=== PATIENT | female | born 1975 | race Caucasian/White ===

== ENCOUNTER → 2019-06-26 | Outpatient (CLI) | payer OTHER ==
--- NOTE | 2019-06-26 11:30 | CT ---
EXAMINATION TYPE: CT brain wo con DATE OF EXAM: 06/26/2019 COMPARISON: 01/23/2013 INDICATION: Headaches with vertigo, right ear trouble DLP: 1121 mGycm, Automated exposure control for dose reduction was used. CONTRAST: None CT of the brain is performed utilizing 3 mm thick sections through the posterior fossa and 3 mm thick sections through the remaining calvarium. Study is performed within 24 hours of arrival to the hosp [facility]. No abnormal hyperdensity is present to suggest an acute intracranial hemorrhage. No mass lesion is evident. No acute infarcts are evident. Ventricles and sulci are appropriate for the patient age. Paranasal sinuses and mastoid air cells within the [id number] are clear. Mastoid air cells are kimber ewhat under pneumatized but are clear. Right middle ear and external auditory canal appears normal. IMPRESSIONS: 1. Normal CT Brain
== END | disposition home or self-care (01) ==
LOC: RADCTMAIN 10:52
PROVIDERS: ATTEND Family Medicine
DX: R51 Headache (principal)
CPT/HCPCS: 70450

== ENCOUNTER → 2020-01-18 | Outpatient (CLI) | payer OTHER ==
[2020-01-18 07:51] LABS: Basophils % (A) 0 %; Eosinophils # (A) 0.1 k/uL (0-0.7); Eosinophils % (A) 1 %; HCT 34.1 % (34.0-46.0); HGB 11.9 gm/dL (11.4-16.0); Lymphocytes # (A) 1.8 k/uL (1.0-4.8); Lymphocytes % (A) 19 %; MCH 33.9 pg (25.0-35.0); MCHC 34.8 g/dL (31.0-37.0); MCV 97.4 fL (80.0-100.0); Mean Platelet Volume 8.2; Monocytes # (A) 0.4 k/uL (0-1.0); Monocytes % (A) 5 %; Neutrophils # (A) 7.1 k/uL (1.3-7.7); Neutrophils % (A) 74 %; Platelet Count 187 k/uL (150-450); RDW 13.3 % (11.5-15.5); WBC 9.6 k/uL (3.8-10.6)
[2020-01-18 13:42] LABS: African American GFR (CKD) 123.9 (60.0-200.0); Albumin/Globulin Ratio 1.9 (1.60-3.17); Anion Gap 6.8 mmol/L (4.00-12.00); Calcium 9.6 mg/dL (8.7-10.3); Carbon Dioxide 23.2 mmol/L (21.6-31.8); Chol/HDL Ratio 4.18; Globulin 2.1 g/dL (1.6-3.3); LDL Cholesterol,Calculated 71.4 mg/dL (0.0-131.0); Non-African American GFR(CKD) 106.9 (60.0-200.0); Total Bilirubin 0.9 mg/dL (0.3-1.2); Total Protein 6.1 g/dL (6.2-8.2); VLDL Calculation 36.6 mg/dL (5.00-40.00)
[2020-01-18 15:22] LABS: Hemoglobin A1C 4.3 % (4.0-6.0)
== END ==
LOC: LABWHC1 07:15
PROVIDERS: ATTEND Family Medicine
DX: I10 Essential (primary) hypertension (principal); J45.40 Moderate persistent asthma, uncomplicated; E78.1 Pure hyperglyceridemia; G43.909 Migraine, unspecified, not intractable, without status migrainosus
CPT/HCPCS: 36415; 80053; 80061; 83036; 85025

== ENCOUNTER → 2020-08-31 | Outpatient (CLI) | payer OTHER ==
[2020-08-31 22:07] LABS: Basophils # (A) 0.08 X 10*3/uL (0.00-0.10); Basophils % (A) 0.6 %; Eosinophils # (A) 0.16 X 10*3/uL (0.04-0.35); Eosinophils % (A) 1.3 %; HCT 35.1 % (37.2-46.3); HGB 11.5 g/dL (12.0-15.0); Lymphocytes # (A) 2.81 X 10*3/uL (0.90-5.00); Lymphocytes % (A) 22.4 %; MCH 33.4 pg (27.0-32.0); MCHC 32.8 g/dL (32.0-37.0); Mean Platelet Volume 11.5 fL (9.5-12.2); Monocytes % (A) 7.2 %; Neutrophils % (A) 67.9 %; Platelet Count 200 X 10*3/uL (140-440); RBC 3.44 X 10*6/uL (4.10-5.20); RDW 13.4 % (11.5-14.5); WBC 12.52 X 10*3/uL (4.50-10.00)
[2020-09-01 11:44] LABS: Gliadin AB IgA, Deaminated NEGATIVE (NEGATIVE); Gliadin AB IgA, Unit <0.2 U/mL; Gliadin AB IgG, Deaminated NEGATIVE (NEGATIVE)
== END | disposition home or self-care (01) ==
LOC: LABWHC1 10:39
PROVIDERS: ATTEND Internal Medicine Gastroenterology
DX: R19.4 Change in bowel habit (principal)
CPT/HCPCS: 36415; 83516; 85025

== ENCOUNTER 2020-10-11 09:29 | Day surgery (SDC) | payer OTHER ==
[2020-10-06 12:07] VITALS: BMI 46.2
[~2020-10-11 09:29] MED LIST: LACTATED RINGERS 1,000 ML IV SCH; LIDOCAINE 1% (10MG/ML) FOR IV START INTRADERMA PRN
[2020-10-11] MEDS ORDERED: PROPOFOL 10 MG/ML 20 ML VIAL IV ONE (10:26)
[2020-10-11 10:28] VITALS: TEMP 97.6
--- NOTE | 2020-10-11 10:45 | P.PCN ---
Date of Procedure: 10/11/20 Procedure(s) Performed: BRIEF HISTORY: Patient is a 44-year-old pleasant white female scheduled for an elective colonoscopy as a part of evaluation of intermittent rectal bleeding and change in bowel habits. PROCEDURE PERFORMED: Colonoscopy with biopsy. PREOPERATIVE DIAGNOSIS: Rectal bleeding and change in bowel habits. IV sedation per Anesthesia. PROCEDURE: After informed consent was obtained, the patient, was brought into the endoscopy unit. IV sedation was administered by Anesthesia under continuous monitoring. Digital rectal examination was normal. Initially the Olympus CF-160 flexible video colonoscope was then inserted in the rectum, gradually advanced into the cecum without any difficulty. Careful examination was performed as the scope was gradually being withdrawn. Ileocecal valve and the appendiceal orifice were visualized and appeared normal. Prep was excellent. In the base of the cecum there was a 3 mm polyp that was removed by cold biopsy. Mucosa of the cecum, ascending colon, transverse colon, descending colon, sigmoid colon, and rectum appeared normal. Retroflexion was performed in the rectum and a 2 internal hemorrhoids were seen. The patient tolerated the procedure well. IMPRESSION: Grade 2 internal hemorrhoids 3 mm cecal polyp status post removal by cold biopsy RECOMMENDATIONS: Findings of this examination were discussed with the patient is well as her family. Follow with biopsy results..She was advised to be a high-fiber diet and take fiber supplements a regular basis. She can have a repeat colonoscopy in 10 years.
[2020-10-11 11:08] VITALS: RESP 20
[2020-10-11 11:23] VITALS: BP 103/64; PULSE 64
== END 2020-10-11 11:31 | disposition home or self-care (01) ==
LOC: ORWHC2ENDO 09:29
PROVIDERS: ATTEND Internal Medicine Gastroenterology
DX: K63.89 Other specified diseases of intestine (principal); Z79.84 Long term (current) use of oral hypoglycemic drugs; Z79.899 Other long term (current) drug therapy; I10 Essential (primary) hypertension; J45.909 Unspecified asthma, uncomplicated; F17.200 Nicotine dependence, unspecified, uncomplicated; G43.909 Migraine, unspecified, not intractable, without status migrainosus; E66.01 Morbid (severe) obesity due to excess calories; Z68.42 Body mass index [BMI] 45.0-49.9, adult; Z79.3 Long term (current) use of hormonal contraceptives; Z90.49 Acquired absence of other specified parts of digestive tract; Z90.89 Acquired absence of other organs; Z98.890 Other specified postprocedural states; J30.89 Other allergic rhinitis
CPT/HCPCS: 81025; 88305; 88313; 45380; J2704

== ENCOUNTER → 2021-08-24 | Outpatient (CLI) | payer OTHER ==
--- NOTE | 2021-08-24 10:34 | FL ---
ESOPHOGRAM. HISTORY: Dysphagia Esophagram was performed per the air contrast technique. The patient swallowed barium and effervesce nt crystals without difficulty or delay. Esophageal peristalsis and motility appear to be within normal limits. There is no evidence for filling defect, mass or diverticulum. There is a small reducible sliding type hiatal hernia. Mild gastroesophageal reflux noted without eso phagitis. Subsequently single contrast cervical esophagram was performed which fails demonstrate evidence for a spiration penetration or mass. IMPRESSION: There is a small reducible sliding type hiatal hernia. Mild gastroesophageal reflux noted without esophagitis.
== END | disposition home or self-care (01) ==
LOC: RADUSWWP 09:46
PROVIDERS: ATTEND Surgery Plastic and Reconstructive Surgery
DX: K44.9 Diaphragmatic hernia without obstruction or gangrene (principal); K21.9 Gastro-esophageal reflux disease without esophagitis
CPT/HCPCS: 74220

== ENCOUNTER 2021-09-12 09:13 | Day surgery (SDC) | payer OTHER ==
[2021-09-10 11:44] VITALS: BMI 43.7
--- NOTE | 2021-09-12 09:06 | P.GSHP ---
History of Present Illness H&P Date: 09/12/21 CHIEF COMPLAINT: GERD HISTORY OF PRESENT ILLNESS: The patient is a 45-year-old female who presents reports gastroesophageal reflux disease. Upper endoscopy was offered for further evaluation and management. PAST MEDICAL HISTORY: Please see list. PAST SURGICAL HISTORY: Please see list. MEDICATIONS: Please see list. ALLERGIES: Please see list. SOCIAL HISTORY: No illicit drug use FAMILY HISTORY: No reports of Crohn disease or ulcerative colitis. REVIEW OF ORGAN SYSTEMS: CONSTITUTIONAL: No reports of fevers or chills. GI: Denies any blood in stools or constipation. PHYSICAL EXAM: VITAL SIGNS: Stable GENERAL: Well-developed and pleasant in no acute distress. HEENT: No scleral icterus. Extraocular movements grossly intact. Moist buccal mucosa. NECK: Supple without lymphadenopathy. CHEST: Unlabored respirations. Equal bilateral excursions. CARDIOVASCULAR: Regular rate and rhythm. Distal 2+ pulses. ABDOMEN: Soft, nondistended. MUSCULOSKELETAL: No clubbing, cyanosis, or edema. ASSESSMENT: 1. Gastroesophageal reflux disease PLAN: 1. Recommend proceeding with an upper endoscopy Past Medical History Past Medical History: Asthma, GERD/Reflux, Hypertension, Osteoarthritis (OA), Pneumonia Additional Past Medical History / Comment(s): migraines, irregular bowel movements, History of Any Multi-Drug Resistant Organisms: None Reported Past Surgical History: Appendectomy, Cholecystectomy, Heart Catheterization, Tonsillectomy Additional Past Surgical History / Comment(s): surgery for deviated septum, anal fissure repair, D&C, Past Anesthesia/Blood Transfusion Reactions: No Reported Reaction Smoking Status: Current every day smoker - Past Family History Father Family Medical History: Cancer Mother Family Medical History: Deep Vein Thrombosis (DVT) Medications and Allergies Home Medications Medication Instructions Recorded Confirmed Type Cetirizine HCl [Zyrtec] 10 mg PO DAILY 03/07/14 09/10/21 History Docusate Sodium [Stool Softener] 100 mg PO DIRECTED PRN 03/07/14 09/10/21 History Medroxyprogesterone Acetate 150 mg IM Q90D 03/07/14 09/10/21 History [Depo-Provera] Montelukast [Singulair] 10 mg PO HS 03/07/14 09/10/21 History Potassium Chloride [K-Tab] 20 meq PO TID 03/07/14 09/10/21 History Topiramate [Topamax] 100 mg PO BID 03/07/14 09/10/21 History hydroCHLOROthiazide [Hydrodiuril] 25 mg PO DAILY 03/07/14 09/10/21 History Albuterol Sulfate [Proair Hfa] 1 - 2 puff INHALATION DIRECTED 10/06/20 09/10/21 History PRN Citalopram Hydrobromide [CeleXA] 40 mg PO HS 10/06/20 09/10/21 History L.acidoph,Paracasei, B.lactis 1 each PO DAILY 10/06/20 09/10/21 History [Probiotic] Magnesium 250 mg PO DAILY 10/06/20 09/10/21 History Multivitamins, Thera [Multivitamin 1 tab PO DAILY 10/06/20 09/10/21 History (formulary)] Naproxen Sodium [Aleve] 220 mg PO DAILY 10/06/20 09/10/21 History Zinc 50 mg PO DAILY 10/06/20 09/10/21 History busPIRone HCL 15 mg PO BID 10/06/20 09/10/21 History hydrOXYzine HCL [Atarax] 25 mg PO TID PRN 10/06/20 09/10/21 History lisinopriL 10 mg PO HS 10/06/20 09/10/21 History Pantoprazole [Protonix] 40 mg PO BID 09/10/21 09/10/21 History Allergies Allergy/AdvReac Type Severity Reaction Status Date / Time No Known Allergies Allergy Verified 09/10/21 11:25
[2021-09-12 09:45] VITALS: TEMP 97.1
[2021-09-12] MEDS ORDERED: LIDOCAINE 1% INJ 10MG/ML (20 ML MDV) ONE (10:45)
[2021-09-12] MEDS ORDERED: PROPOFOL 10 MG/ML 20 ML VIAL IV ONE (10:45)
[2021-09-12 11:04] VITALS: RESP 18
[2021-09-12] MEDS ORDERED: ACETAMINOPHEN TAB 325 MG TAB ONE (11:09)
[2021-09-12] MEDS ORDERED: ACETAMINOPHEN TAB 325 MG TAB PO ONE (11:10)
[2021-09-12 11:20] VITALS: BP 107/77; PULSE 76
--- NOTE | 2021-09-12 11:36 | P.PCN ---
Date of Procedure: 09/12/21 Description of Procedure: PREOPERATIVE DIAGNOSIS: Gastroesophageal reflux disease. Morbid obesity. POSTOPERATIVE DIAGNOSIS: Gastroesophageal reflux disease. Morbid obesity. Gastritis. Duodenitis Diaphragmatic hiatal hernia OPERATION: Esophagogastroduodenoscopy with biopsies along antrum. SURGEON: Gaby Addison MD ANESTHESIA: MAC. INDICATIONS: The patient is a 45-year-old female who presents with reflux disease. Benefits and risks of the procedure were described. Informed consent was obtained. DESCRIPTION: The patient was brought into the endoscopy suite and laid in the left lateral decubitus position. An Olympus gastroscope was passed along the posterior oropharynx down to the distal esophagus where the squamocolumnar junction was encountered at 39 cm from the incisors. The stomach was entered and no bile reflux was found. Additional findings are listed below. Biopsies with cold for ceps were obtained of the antrum. The first through third portion of the duodenum was examined for duodenitis. Retroflexion of the scope confirmed Hill grade 3 lower esophageal valve. The squamocolumnar junction demonstrated LA grade B erosive esophagitis. The stomach was desufflated. The patient tolerated the procedure well. FINDINGS: Squamocolumnar junction 39 cm from the incisors. Diaphragmatic hiatus at 40 cm. Hiatal hernia, 1 cm Hill grade 2 lower esophageal valve. LA grade B erosive esophagitis. Active duodenitis. Chronic gastritis with recent bleed RECOMMENDATIONS: 1. Tobacco cessation and counseling over 3 minutes described for chronic gastritis 2. Omeprazole 40 mg twice a day for 2 weeks 3. Discontinue NSAIDs temporarily during treatment Plan - Discharge Summary Discharge Rx Participant: No New Discharge Prescriptions: New Omeprazole [PriLOSEC] 40 mg PO DAILY #14 cap Continue hydroCHLOROthiazide [Hydrodiuril] 25 mg PO DAILY Montelukast [Singulair] 10 mg PO HS Topiramate [Topamax] 100 mg PO BID Cetirizine HCl [Zyrtec] 10 mg PO DAILY Medroxyprogesterone Acetate [Depo-Provera] 150 mg IM Q90D Potassium Chloride [K-Tab ER] 20 meq PO TID Docusate Sodium [Stool Softener] 100 mg PO DIRECTED PRN PRN Reason: CONSTIPATION busPIRone HCL 15 mg PO BID Multivitamins, Thera [Multivitamin (formulary)] 1 tab PO DAILY Albuterol Sulfate [Proair Hfa] 1 - 2 puff INHALATION DIRECTED PRN PRN Reason: sob hydrOXYzine HCL [Atarax] 25 mg PO TID PRN PRN Reason: Anxiety lisinopriL 10 mg PO HS Citalopram Hydrobromide [CeleXA] 40 mg PO HS Zinc 50 mg PO DAILY L.acidoph,Paracasei, B.lactis [Probiotic] 1 each PO DAILY Magnesium 250 mg PO DAILY Pantoprazole [Protonix] 40 mg PO BID Discontinued Naproxen Sodium [Aleve] 220 mg PO DAILY Discharge Medication List Cetirizine HCl [Zyrtec] 10 mg PO DAILY 03/07/14 [History] Docusate Sodium [Stool Softener] 100 mg PO DIRECTED PRN 03/07/14 [History] Medroxyprogesterone Acetate [Depo-Provera] 150 mg IM Q90D 03/07/14 [History] Montelukast [Singulair] 10 mg PO HS 03/07/14 [History] Potassium Chloride [K-Tab ER] 20 meq PO TID 03/07/14 [History] Topiramate [Topamax] 100 mg PO BID 03/07/14 [History] hydroCHLOROthiazide [Hydrodiuril] 25 mg PO DAILY 03/07/14 [History] Albuterol Sulfate [Proair Hfa] 1 - 2 puff INHALATION DIRECTED PRN 10/06/20 [History] Citalopram Hydrobromide [CeleXA] 40 mg PO HS 10/06/20 [History] L.acidoph,Paracasei, B.lactis [Probiotic] 1 each PO DAILY 10/06/20 [History] Magnesium 250 mg PO DAILY 10/06/20 [History] Multivitamins, Thera [Multivitamin (formulary)] 1 tab PO DAILY 10/06/20 [History] Zinc 50 mg PO DAILY 10/06/20 [History] busPIRone HCL 15 mg PO BID 10/06/20 [History] hydrOXYzine HCL [Atarax] 25 mg PO TID PRN 10/06/20 [History] lisinopriL 10 mg PO HS 10/06/20 [History] Pantoprazole [Protonix] 40 mg PO BID 09/10/21 [History] Omeprazole [PriLOSEC] 40 mg PO DAILY #14 cap 09/12/21 [Rx] Follow up Appointment(s)/Referral(s): Gaby Addison MD [STAFF PHYSICIAN] - 10/16/21 Patient Instructions/Handouts: How to Stop Smoking (DC), Gastritis (DC), Diet for Stomach Ulcers and Gastritis (ED) Discharge Disposition: HOME SELF-CARE
== END 2021-09-12 11:44 | disposition home or self-care (01) ==
LOC: ORWHC2ENDO 09:13
PROVIDERS: ATTEND Surgery Plastic and Reconstructive Surgery
DX: K21.00 Gastro-esophageal reflux disease with esophagitis, without bleeding (principal); K29.50 Unspecified chronic gastritis without bleeding; K29.80 Duodenitis without bleeding; K44.9 Diaphragmatic hernia without obstruction or gangrene; E66.01 Morbid (severe) obesity due to excess calories; I10 Essential (primary) hypertension; J45.909 Unspecified asthma, uncomplicated; M19.90 Unspecified osteoarthritis, unspecified site; G43.909 Migraine, unspecified, not intractable, without status migrainosus; F17.210 Nicotine dependence, cigarettes, uncomplicated; F32.A Depression, unspecified; F41.9 Anxiety disorder, unspecified; Z68.41 Body mass index [BMI] 40.0-44.9, adult; Z79.899 Other long term (current) drug therapy; Z79.3 Long term (current) use of hormonal contraceptives; Z90.49 Acquired absence of other specified parts of digestive tract; Z90.89 Acquired absence of other organs; Z98.890 Other specified postprocedural states; Z87.01 Personal history of pneumonia (recurrent); Z80.9 Family history of malignant neoplasm, unspecified
CPT/HCPCS: 81025; 88305; 43239; J2001; J2704

== ENCOUNTER → 2022-02-20 | Outpatient (CLI) | payer SELFPAY ==
[2022-02-21 00:40] LABS: African American GFR (CKD) 101.8 (60.0-200.0); Anion Gap 13.5 mmol/L (10.00-18.00); BUN/Creat Ratio 14.99 Ratio (12.00-20.00); Blood Urea Nitrogen 12.2 mg/dL (9.0-27.0); Calcium 9.3 mg/dL (8.7-10.3); Carbon Dioxide 22.5 mmol/L (20.0-27.5); Non-African American GFR(CKD) 87.8 (60.0-200.0); Potassium 3.8 mmol/L (3.5-5.5)
== END | disposition home or self-care (01) ==
LOC: LABWHC1 10:56
PROVIDERS: ATTEND Family Medicine
DX: I10 Essential (primary) hypertension (principal)
CPT/HCPCS: 36415; 80048

== ENCOUNTER → 2023-03-05 | Outpatient (CLI) | payer OTHER ==
--- NOTE | 2023-03-11 13:29 | MM ---
Reason for Exam: Screening (asymptomatic). Last mammogram was performed 2 year(s) and 6 month(s) ago. Patient History: Menarche at age 14. Patient has no children. Currently using Hormonal Contraceptives, starting at age 30. Sister had ovarian cancer, age 50. Risk Values: Laura 5 year model risk: 0.9%. NCI Lifetime model risk: 10.6%. Prior Study Comparison: 09/20/2020 Bilateral Screening Mammogram, [facility]. Tissue Density: The breast tissue is almost entirely fat. Findings: Analyzed By CAD. Pattern appears stable. No significant interval change is evident. No suspicious groups of microcalcifications, spiculated or lobular masses, architectural distortion or other secondary signs of malignancy are mammographically apparent. Overall Assessment: Negative, BI-RAD 1 Management: Screening Mammogram of both breasts in 1 year. A negative mammogram report should not preclude additional follow up of suspicious palpable abnormalities. Patient should continue monthly self breast exam. A clinical breast exam by your physician is recommended on an annual basis and results should be correlated with mammographic findings. Electronically signed and approved by: Henrik Abrams D.O. Radiologis
== END | disposition home or self-care (01) ==
LOC: RADMAMWWP 15:58
PROVIDERS: ATTEND Family Medicine
DX: Z12.31 Encounter for screening mammogram for malignant neoplasm of breast (principal)
CPT/HCPCS: 77067

== ENCOUNTER → 2023-05-27 | Outpatient (CLI) | payer OTHER | LOC: CPPFTMAIN 16:31 | PROVIDERS: ATTEND Family Medicine | DX: J45.909 Unspecified asthma, uncomplicated (principal); F17.200 Nicotine dependence, unspecified, uncomplicated | CPT/HCPCS: 94060; 94726; 94729 ==

== ENCOUNTER → 2023-06-04 | Outpatient (CLI) | payer OTHER | END | disposition home or self-care (01) | LOC: LABWHC1 16:10 | PROVIDERS: ATTEND Family Medicine | DX: R05.1 Acute cough (principal) | CPT/HCPCS: 87634 ==

== ENCOUNTER → 2023-06-04 | Outpatient (CLI) | payer OTHER ==
--- NOTE | 2023-06-05 08:24 | XR ---
EXAMINATION TYPE: XR chest 2V DATE OF EXAM: 06/04/2023 COMPARISON: NONE TECHNIQUE: PA and lateral views submitted. HISTORY: Cough FINDINGS: The lungs are clear and there is no pneumothorax, pleural effusion, or focal pneumonia. Heart size normal and no overt failure. Osseous structures demonstrate hypertrophic and degenerative changes of the spine. Hyperexpansion correlate for COPD. Biapical pleural thickening. IMPRESSION: 1. No acute process.
== END | disposition home or self-care (01) ==
LOC: RADXRMAIN 17:04
PROVIDERS: ATTEND Physician Assistant
DX: R05.1 Acute cough (principal)
CPT/HCPCS: 71046

== ENCOUNTER → 2024-03-25 | Outpatient (CLI) | payer OTHER ==
--- NOTE | 2024-03-26 09:39 | MM ---
Reason for Exam: Screening (asymptomatic). Last mammogram was performed 1 year(s) and 1 month(s) ago. Patient History: Menarche at age 14. Patient has no children. Currently using Hormonal Contraceptives, starting at age 30. Sister had ovarian cancer, age 50. Risk Values: Laura 5 year model risk: 0.9%. NCI Lifetime model risk: 10.5%. Prior Study Comparison: 09/20/2020 Bilateral Screening Mammogram, [facility]. 03/05/2023 Bilateral MG screening mammo w CAD, [facility]. Tissue Density: The breasts are almost entirely fatty. Findings: Analyzed By CAD. Right breast: There is no suspicious group of microcalcifications or new suspicious mass. Left breast: There is no suspicious group of microcalcifications or new suspicious mass. Overall Assessment: Negative, BI-RAD 1 Management: Screening Mammogram of both breasts in [address] [facility] will attempt to contact patient to return for supplemental views and ultrasound if indicated. Patient should continue monthly self-breast exams. A clinical breast exam by your physician is recommended on an annual basis. This exam should not preclude additional follow-up of suspicious palpable abnormalities. Note on Laura scores and lifetime risk: 1. A Laura score greater than 3% is considered moderate risk. If this is the case, consider specialist referral to assess eligibility for a risk reducing agent. 2. If overall lifetime risk for the development of breast cancer is 20% or higher, the patient may qualify for future screening with alternating mammogram and breast MRI. [facility], , 03/26/2024 9:36 AM. Electronically signed and approved by: Gautam Cordova DO
== END | disposition home or self-care (01) ==
LOC: RADMAMWWP 14:36
PROVIDERS: ATTEND Family Medicine
DX: Z12.31 Encounter for screening mammogram for malignant neoplasm of breast
CPT/HCPCS: 77067

== ENCOUNTER 2024-04-05 22:16 | Emergency (ER) | payer OTHER ==
[2024-04-05 22:19] VITALS: RESP 18; TEMP 98.2
--- NOTE | 2024-04-05 23:28 | XR ---
EXAM: XR Left Knee, 3 Views CLINICAL HISTORY: pain TECHNIQUE: Three views of the left knee. COMPARISON: No relevant prior studies available. FINDINGS: Bones/joints: Moderate osteoarthritic changes worse in lateral compartment characterized by joint space narrowing and osteophyte formation. 12 mm loose body in the anterior aspect of the tibial plateau. No fracture or dislocation. Soft tissues: Myositis ossificans versus heterotopic bone formations in the soft tissues of medial aspect of proximal leg. IMPRESSION: Moderate osteoarthritic changes worse in lateral compartment
--- NOTE | 2024-04-05 23:51 | ED ---
Lower Extremity Injury HPI - General Chief Complaint: Extremity Injury, Lower Stated Complaint: L Knee Pain Time Seen by Provider: 04/05/24 22:31 Source: patient, RN notes reviewed Mode of arrival: ambulatory Limitations: no limitations - History of Present Illness Initial Comments: 48-year-old female presents emergency department for chief complaint of left knee pain. States that while she was walking up the stairs this evening she felt like her knee gave out and felt a popping sensation in the knee. She denies falling or hitting her left knee during this time. Denies left hip or ankle pain. Denies paresthesias. Patient is able to ambulate with pain. She does have a history of osteoarthritis of the left knee where she receives joint injections and is [facility]. Denies previous surgeries of the left knee. - Related Data Home Medications Medication Instructions Recorded Confirmed Cetirizine HCl [Zyrtec] 10 mg PO DAILY 03/07/14 09/10/21 Docusate Sodium [Stool Softener] 100 mg PO DIRECTED PRN 03/07/14 09/10/21 Medroxyprogesterone Acetate 150 mg IM Q90D 03/07/14 09/10/21 [Depo-Provera] Montelukast [Singulair] 10 mg PO HS 03/07/14 09/10/21 Potassium Chloride [K-Tab ER] 20 meq PO TID 03/07/14 09/10/21 Topiramate [Topamax] 100 mg PO BID 03/07/14 09/10/21 hydroCHLOROthiazide [Hydrodiuril] 25 mg PO DAILY 03/07/14 09/10/21 Albuterol Sulfate [Proair Hfa] 1 - 2 puff INHALATION DIRECTED 10/06/20 09/10/21 PRN Citalopram Hydrobromide [CeleXA] 40 mg PO HS 10/06/20 09/10/21 L.acidoph,Paracasei, B.lactis 1 each PO DAILY 10/06/20 09/10/21 [Probiotic] Magnesium 250 mg PO DAILY 10/06/20 09/10/21 Multivitamins, Thera [Multivitamin 1 tab PO DAILY 10/06/20 09/10/21 (formulary)] Zinc 50 mg PO DAILY 10/06/20 09/10/21 busPIRone HCL 15 mg PO BID 10/06/20 09/10/21 hydrOXYzine HCL [Atarax] 25 mg PO TID PRN 10/06/20 09/10/21 lisinopriL [Prinivil] 10 mg PO HS 10/06/20 09/10/21 Pantoprazole [Protonix] 40 mg PO BID 09/10/21 09/10/21 Previous Rx's Medication Instructions Recorded Omeprazole [PriLOSEC] 40 mg PO DAILY #14 cap 09/12/21 Ketorolac [Toradol] 10 mg PO Q8HR PRN #15 tab 04/05/24 Allergies Allergy/AdvReac Type Severity Reaction Status Date / Time No Known Allergies Allergy Verified 04/05/24 22:19 Review of Systems ROS Statement: Those systems with pertinent positive or pertinent negative responses have been documented in the HPI. ROS Other: All systems not noted in ROS Statement are negative. Past Medical History Past Medical History: Asthma, GERD/Reflux, Hypertension, Pneumonia Additional Past Medical History / Comment(s): migraines, irregular bowel movements, History of Any Multi-Drug Resistant Organisms: None Reported Past Surgical History: Appendectomy, Cholecystectomy, Heart Catheterization, Tonsillectomy Additional Past Surgical History / Comment(s): surgery for deviated septum, anal fissure repair, D&C, Past Anesthesia/Blood Transfusion Reactions: No Reported Reaction Past Psychological History: Anxiety, Depression Smoking Status: Current every day smoker Past Alcohol Use History: None Reported Past Drug Use History: None Reported - Past Family History Father Family Medical History: Cancer Mother Family Medical History: Deep Vein Thrombosis (DVT) General Exam Limitations: no limitations General appearance: alert, in no apparent distress ENT exam: Present: normal exam, mucous membranes moist Neck exam: Present: normal inspection. Absent: tenderness, meningismus, lymphad enopathy Respiratory exam: Present: normal lung sounds bilaterally. Absent: respiratory distress, wheezes, rales, rhonchi, stridor Cardiovascular Exam: Present: regular rate, normal rhythm, normal heart sounds. Absent: systolic murmur, diastolic murmur, rubs, gallop, clicks GI/Abdominal exam: Present: soft, normal bowel sounds. Absent: distended, tenderness, guarding, rebound, rigid Left Knee exam: Present: normal inspection, tenderness (lateral to palpation and with ROM). Absent: swelling, abrasion, ecchymosis, deformity Lower Leg exam: Present: normal inspection, full ROM. Absent: tenderness Neurovascular tendon exam: Absent: no vascular compromise, pulse deficit, abnormal cap refill, motor deficit Gait: observed and limited by pain Back exam: Present: normal inspection Skin exam: Present: warm, dry, intact, normal color. Absent: rash Course Vital Signs 04/05/24 04/06/24 22:17 00:07 Temperature 98.2 F Pulse Rate 82 81 Respiratory 18 18 Rate Blood Pressure 134/81 122/85 O2 Sat by Pulse 98 97 Oximetry Medical Decision Making - Medical Decision Making Was pt. sent in by a medical professional or institution (, PA, LOW PRESSURE BOILER TENDER, urgent care, hospital, or detention...) When possible be specific @ -No Did you speak to anyone other than the patient for history (EMS, parent, family, police, friend...)? What history was obtained from this source @ -No Did you review nursing and triage notes (agree or disagree)? Why? @ -I reviewed and agree with nursing and triage notes Were old charts reviewed (outside hosp., previous admission, EMS record, old EKG, old radiological studies, urgent care reports/EKG's, detention records)? Report findings @ -No old charts were reviewed Differential Diagnosis (chest pain, altered mental status, abdominal pain women, abdominal pain men, vaginal bleeding, weakness, fever, dyspnea, syncope, headache, dizziness, GI bleed, back pain, seizure, CVA, palpatations, mental health, musculoskeletal)? @ -Differential Musculoskeletal Muscular strain, contusion, ligament sprain, fracture, arthritis, septic arthritis, bursitis, cellulitis, muscle spasm, nerve compression, DVT, arterial occlusion, herpes zoster, electrolyte abnormality, tumor.... This is not meant to be in all inclusive list EKG interpreted by me (3pts min.). @ -None X-rays interpreted by me (1pt min.). @ -X-ray of the left knee reveals moderate osteoarthritic changes worse in the lateral compartment. CT interpreted by me (1pt min.). @ -None done U/S interpreted by me (1pt. min.). @ -None done What testing was considered but not performed or refused? (CT, X-rays, U/S, labs)? Why? @ -None What meds were considered but not given or refused? Why? @ -None Did you discuss the management of the patient with other professionals (professionals i.e. , PA, LOW PRESSURE BOILER TENDER, lab, RT, psych nurse, social services specialist, golf club repairer, teacher, chief legal officer, manager case management)? Give summary @ -No Was smoking cessation discussed for >3mins.? @ -No Was critical care preformed (if so, how long)? @ -No Were there social determinants of health that impacted care today? How? (Homelessness, low income, unemployed, alcoholism, drug addiction, transportation, low edu. Level, literacy, decrease access to med. care, residential, rehab)? @ -No Was there de-escalation of care discussed even if they declined (Discuss DNR or withdrawal of care, Hospice)? DNR status @ -No What co-morbidities impacted this encounter? (DM, HTN, Smoking, COPD, CAD, Cancer, CVA, ARF, Chemo, Hep., AIDS, mental health diagnosis, sleep apnea, morbid obesity)? @ -None Was patient admitted / discharged? Hospital course, mention meds given and route, prescriptions, significant lab abnormalities, going to OR and other pertinent info. @ -Discharge. 48-year-old female with left knee pain. On my evaluation the patient she is resting comfortably no signs acute distress. Patient's pain in the left knee exacerbated with range of motion and with palpation. She is able to ambulate however with pain. X-ray negative for acute abnormality. She is provided with dose of Toradol emergency department and sent a prescription for Toradol to take as needed. Patient has seen a personnel security specialist in the past recommend that she contact her specialist in the morning to schedule appointment for further evaluation for potential MRI. All questions answered at bedside and strict return parameters ruben with the patient she is verbalized understanding. Discussed with Dr. Alfaro Undiagnosed new problem with uncertain prognosis? @ -No Drug Therapy requiring intensive monitoring for toxicity (Heparin, Nitro, Insulin, Cardizem)? @ -No Were any procedures done? @ -No Diagnosis/symptom? @ -Knee sprain, knee pain Acute, or Chronic, or Acute on Chronic? @ -acute Uncomplicated (without systemic symptoms) or Complicated (systemic symptoms)? @ -Uncomplicated Side effects of treatment? @ -No Exacerbation, Progression, or Severe Exacerbation? @ -No Poses a threat to life or bodily function? How? (Chest pain, [place], [place], pneumonia, PE, COPD, DKA, ARF, appy, cholecystitis, CVA, Diverticulitis, Homicidal, Suicidal, threat to staff... and all critical care pts) @ -No Disposition Clinical Impression: Knee sprain Disposition: HOME SELF-CARE Condition: Good Instructions (If sedation given, give patient instructions): Knee Sprain (ED) Additional Instructions: Please return to the Emergency Department if symptoms worsen or any other concerns. Recommend that you contact your personnel security specialist in the morning to schedule an appointment for further evaluation. Prescriptions: Ketorolac [Toradol] 10 mg PO Q8HR PRN #15 tab PRN Reason: Pain Is patient prescribed a controlled substance at d/c from ED?: No Referrals: Peña Morley MD [Primary Care Provider] - 1-2 days Time of Disposition: 23:50
[2024-04-06] MEDS: KETOROLAC 15 MG/ML 1 ML VIAL IM STA (00:07)
[2024-04-06 00:15] VITALS: BP 122/85; PULSE 81
== END 2024-04-06 00:07 | disposition home or self-care (01) ==
LOC: EC 22:16
CPT/HCPCS: 96372; 99283

== ENCOUNTER 2024-07-09 05:51 | Day surgery (SDC) | payer OTHER ==
[2024-07-09] MEDS ORDERED: SCOPOLAMINE 1 MG/72 HR PATCH TRANSDERM ONE (06:10)
[2024-07-09] MEDS: LACTATED RINGERS 1,000 ML IV SCH (06:51)
[2024-07-09] MEDS: DEXAMETHASONE SOD PHOSPHATE 4 MG/ML 1 ML VIAL IV ONE (07:21)
[2024-07-09] MEDS: ONDANSETRON 4 MG/2 ML VIAL IVP ONE (07:22)
[2024-07-09] MEDS: MIDAZOLAM 2 MG/2 ML VIAL IV PRN (07:25)
[2024-07-09] MEDS: fentaNYL (PF) 50 MCG/ML 2 ML AMP IVP PRN (07:25)
[2024-07-09] MEDS ORDERED: GLYCOPYRROLATE 0.2 MG/ML 2 ML VIAL ONE (07:35)
[2024-07-09] MEDS ORDERED: PROPOFOL 10 MG/ML 20 ML VIAL IV ONE (07:35)
[2024-07-09] MEDS ORDERED: ROPIVACAINE 5 MG/ML 30 ML VIAL ONE (07:35)
[2024-07-09] MEDS ORDERED: LIDOCAINE 1% INJ 10MG/ML (20 ML MDV) ONE (07:35)
[2024-07-09] MEDS ORDERED: fentaNYL (PF) 50 MCG/ML 2 ML AMP ONE (07:35)
[2024-07-09] MEDS ORDERED: ROCURONIUM 10 MG/ML (5 ML VIAL) IV ONE (07:35)
[2024-07-09] MEDS ORDERED: SODIUM CHLORIDE 0.9% (PF) 10 ML VIAL ONE (07:35)
[2024-07-09] MEDS ORDERED: NEOSTIGMINE 1 MG/ML 10 ML VIAL ONE (07:35)
[2024-07-09] MEDS ORDERED: SUCCINYLCHOLINE CHLORIDE 200 MG/10 ML VIAL IV ONE (07:35)
[2024-07-09] MEDS ORDERED: PHENYLEPHRINE-0.9% NACL SYG 1,000 MCG/10 ML SYRINGE ONE (07:35)
[2024-07-09] MEDS: ceFAZolin 1,000 MG in SODIUM CHLORIDE 0.9% 1,000 ML IRRIGATION ONE (07:40)
[2024-07-09] MEDS: ceFAZolin 3 GM in SODIUM CHLORIDE 0.9% 100 ML IVPB PRN (07:40)
[2024-07-09] MEDS: IV FLUID CONTINUATION 1,000 ML IV ONE ×2 (07:43→10:26)
--- NOTE | 2024-07-09 09:22 | FL ---
EXAMINATION TYPE: FL guidance operating room, XR calcaneus 2V LT DATE OF EXAM: 07/09/2024 9:06 AM COMPARISON: Pre Operative Images if available both CT/MRI or plain film CLINICAL INDICATION: Female, 48 years old with history of LEFT ACHILLES TENDON REPAIR; TECHNIQUE: FL guidance operating room, XR calcaneus 2V LT, multiple fluoroscopic images provided for procedure. Total fluoroscopy time: 36 seconds Total submitted images to PACS: 4 DAP: 0.6037 mGym2 Gycm2 uGym2 cGycm2 or equivalent. FINDINGS: Fluoroscopic images during internal surgery. No immediate complication identified. IMPRESSION: 1. No evidence for intraoperative complication. 2. Please see the operative/procedural note for further details. [facility], , 07/09/2024 9:19 AM
[2024-07-09 09:23] VITALS: TEMP 97
[2024-07-09] MEDS: ALBUTEROL NEBULIZED 2.5 MG/3 ML INHALATION STA (09:24)
[2024-07-09] MEDS: KETOROLAC 15 MG/ML 1 ML VIAL IVP STA (09:31)
--- NOTE | 2024-07-09 09:34 | P.OP ---
Date of Procedure: 07/09/24 Preoperative Diagnosis: 1. Achilles tendinitis left ankle 2. Calcaneal spur left foot Postoperative Diagnosis: 1. Same 2. Same Procedure(s) Performed: 1. Secondary repair of left Achilles tendon 2. Excision of calcaneal spur left foot Implants: Arthrex Achilles speed bridge Arthrex fiber tack anchors x 2 Anesthesia: BLANQUITAA Surgeon: Christopher Dillard Estimated Blood Loss (ml): 5 Pathology: none sent Condition: stable Disposition: PACU Description of Procedure: Prior to the patient being brought to the operative room, anesthesia administered a nerve block on the operative extremity. The patient was brought into the operative room where a timeout was taken to confirm correct patient identifiers, correct laterality of surgery, and correct procedure. Once all staff in the room was in agreement with the timeout, the patient was induced and placed under general anesthesia. The patient was rolled onto the operating table in the prone position. When anesthesia was satisfied with the positioning of the patient, a well-padded tourniquet was placed on the operative thigh and then the operative leg was prepped and draped in the usual manner. The leg was exsanguinated and the tourniquet inflated to 250 mmHg. Under direct fluoroscopic visualization, villalta on the skin were made for the incisions. There were 4 incisions planned: 1 at the 2:00, the 4:00, the 7:00, and the 10:00 positions. The proximal incisions were proximal to the Achilles insertion while the distal were distal to the insertion. The incisions were made directly down to bone. An elevator was used to separate the skin from the Achilles tendon between the distal incisions and the corresponding medial lateral incisions. The skin tunnel was left intact from the 2 proximal incisions. The elevator was also used to separate the Achilles tendon from the posterior aspect of the calcaneus without disrupting the insertion. Then a bone resection bur was used to remove the posterior superior aspect of the calcaneus as well as the insertional calcification for the Achilles tendon. Once adequate resection was completed, the area was thoroughly irrigated to remove all the bony material. Through the distal incisions drill holes for 4.75 swivel lock anchors were made and then the holes were tapped. Then attention was directed to the proximal incisions where drill holes for 4.75 swivel lock anchors were made into the calcaneal body proximal to the insertion. Those holes were tapped and then the anchors were inserted down to proper depth. Then drill guides for the fiber tack anchors were placed on the posterior superior aspect of the calcaneus proximal to the swivel lock anchors. The drilling was completed and then the anchors inserted and tensioned to make sure they locked into the bone. The suture for the fiber tack anchors was then passed into the incision deep to the Achilles tendon and out the Doser dorsal skin. This was repeated for the other side. The same was done with the suture for the swivel lock anchors only distal to the fiber tack suture. A sae hook was used to grasp the suture of the fiber tack anchors and pulled and through the corresponding incision between the skin and the Achilles tendon. A hemostat was used to pass the tightening sutures from medial to lateral through the skin incisions. Then those sutures were passed through the loop portion of the anchor and then the loops were pulled until nearly tension. Once both sutures were pulled through the fiber tack anchor the sutures were tightened simultaneously to bring the Achilles tendon against the bony surface of the posterior superior calcaneal body. Then the sutures were cut. The swivel lock sutures were also passed through the skin incision utilizing a sae hook so that the suture was between the skin and the Achilles tendon. Then a hemostat was used to grasp 1 branch of each swivel lock through the proximal incisions deformed the speed bridge construct. 4.75 mm swivel lock anchors were then used to grasp the suture and inserted into the distal drill holes of the calcaneus. The anchors were impacted and then advanced down to proper depth. This was repeated on both sides. Once completed the ankle was dorsiflexed and there was continued tension through the entire Achilles. Chavez's test was also negative. All wounds were thoroughly irrigated with antibiotic saline. Each incision was closed with 3-0 nylon. At that point ankle dorsiflexion was tested with a knee flexed and indicated that there was adequate dorsiflexion of the ankle therefore the gastroc recession was not necessary. An Arthrex jumpstart was placed over the incisions then a bulky dry dressing applied to the foot and ankle. The tourniquet was released and capillary refill returned all digits of the left foot. The patient was placed in a well-padded, well molded plaster posterior mold/sugar-tong splint. The ankle was held in slight equinus until the splint was dried. The patient was rolled back onto the transfer table into the supine position at which point anesthesia was reversed and the patient was taken recovery with vital signs stable
[2024-07-09] MEDS: HYDROmorphone 0.5 MG/0.5 ML SYRINGE IVP PRN (09:38)
[2024-07-09] MEDS: FLUID CONTINUATION IV ONE (10:26)
[2024-07-09 10:33] VITALS: RESP 16
[2024-07-09] MEDS: HYDROcodone/APAP 5-325MG 1 EACH TAB PO STA (10:48)
[2024-07-09 11:14] VITALS: BP 112/73
[2024-07-09 11:15] VITALS: PULSE 66
--- NOTE | 2024-07-09 13:58 | P.ANPRN ---
Procedure Note - Anesthesia - Nerve Block Performed Left Popliteal Single Time Out Performed: Yes (0724) Date of Procedure: 07/09/24 Procedure Start Time: Procedure Stop Time: Location of Patient: PreOp Indication: Acute Post-Operative Pain, Requested by Surgeon Specifically requested for management of pain by DrMilena: Christopher Dillard Sedation Type: Sedate with meaningful contact maintained Preparation: Sterile Prep Position: Right Lateral Catheter: None Needle Types: Pajunk Needle Gauge: 21 Ultrasound used to visualize needle placement: Yes Ultrasound used to observe medication spread: Yes Injectate: 0.5% Ropivacaine (see comment for volume) (15cc+10cc nacl pf) Blood Aspirated: No Pain Paresthesia on Injection Noted: No Resistance on Injection: Normal Image Stored and Saved: Yes Events: Uneventful and Well Tolerated
--- NOTE | 2024-07-09 13:59 | P.ANPRN ---
Procedure Note - Anesthesia - Nerve Block Performed Left Adductor Canal Single Time Out Performed: Yes (0724) Date of Procedure: 07/09/24 Procedure Start Time: 07:30 Procedure Stop Time: :35 Location of Patient: PreOp Indication: Acute Post-Operative Pain, Requested by Surgeon Specifically requested for management of pain by DrMilena: Christopher Dillard Sedation Type: Sedate with meaningful contact maintained Preparation: Sterile Prep Position: Supine Catheter: None Needle Types: Pajunk Needle Gauge: 21 Ultrasound used to visualize needle placement: Yes Ultrasound used to observe medication spread: Yes Injectate: 0.5% Ropivacaine (see comment for volume) (15cc+10cc nacl pf) Blood Aspirated: No Pain Paresthesia on Injection Noted: No Resistance on Injection: Normal Image Stored and Saved: Yes Events: Uneventful and Well Tolerated
== END 2024-07-09 11:58 | disposition home or self-care (01) ==
LOC: OR 05:51
PROVIDERS: ATTEND Podiatrist
DX: M76.62 Achilles tendinitis, left leg (principal); M77.32 Calcaneal spur, left foot; I10 Essential (primary) hypertension; J45.909 Unspecified asthma, uncomplicated; F32.A Depression, unspecified; F41.9 Anxiety disorder, unspecified; K21.9 Gastro-esophageal reflux disease without esophagitis; Z91.030 Bee allergy status; Z79.899 Other long term (current) drug therapy
CPT/HCPCS: 64447; 81025; 64445; 84132; 73650; 27650; C1713 ×3; J2250; J0330; J1100; J2710; J0690 ×2; J2405; J2003; J3010; J2795; J1885; J2704; J1171; J2371; J1596

== ENCOUNTER 2024-12-03 07:14 | Day surgery (SDC) | payer OTHER ==
[~2024-12-03 07:14] MED LIST changes: -LACTATED RINGERS 1,000 ML IV SCH; +fentaNYL (PF) 50 MCG/ML 2 ML AMP IVP PRN
[2024-12-03] MEDS: IV FLUID CONTINUATION 1,000 ML IV ONE (07:38)
[2024-12-03] MEDS: ONDANSETRON 4 MG/2 ML VIAL IVP ONE (08:10)
[2024-12-03] MEDS: DEXAMETHASONE SOD PHOSPHATE 4 MG/ML 1 ML VIAL IV ONE (08:10)
[2024-12-03] MEDS: LACTATED RINGERS 1,000 ML IV SCH (08:10)
[2024-12-03] MEDS: MIDAZOLAM 2 MG/2 ML VIAL IV PRN (08:15)
[2024-12-03 08:47] LABS: Basophils # (A) 0.09 10*3/uL (0.00-0.10); Basophils % (A) 0.9 %; Eosinophils # (A) 0.16 10*3/uL (0.04-0.35); Eosinophils % (A) 1.6 %; HCT 35.6 % (37.2-46.3); HGB 12.3 g/dL (12.0-15.0); Lymphocytes # (A) 1.98 10*3/uL (0.90-5.00); Lymphocytes % (A) 20.3 %; MCH 33.2 pg (27.0-32.0); MCHC 34.6 g/dL (32.0-37.0); Mean Platelet Volume 10.6 fL (9.5-12.2); Monocytes # (A) 0.76 10*3/uL (0.20-1.00); Monocytes % (A) 7.8 %; Neutrophils # (A) 6.69 10*3/uL (1.80-7.70); Neutrophils % (A) 68.7 %; Platelet Count 183 10*3/uL (140-440); RBC 3.71 10*6/uL (4.10-5.20); RDW 12.6 % (11.5-14.5); WBC 9.75 10*3/uL (4.50-10.00)
[2024-12-03 09:10] LABS: African American GFR (CKD) >90 (>60 ml/min/1.73 sqM); Anion Gap 11 mmol/L; Blood Urea Nitrogen 8 mg/dL (7-17); Calcium 9.3 mg/dL (8.4-10.2); Carbon Dioxide 22 mmol/L (22-30); Chloride 109 mmol/L (98-107); Glucose 110 mg/dL (74-99); Non-African American GFR(CKD) >90 (>60 ml/min/1.73 sqM); Potassium 3.5 mmol/L (3.5-5.1); Sodium 142 mmol/L (137-145)
[2024-12-03] MEDS ORDERED: DEXAMETHASONE SOD PHOSPHATE 4 MG/ML 1 ML VIAL ONE (09:15)
[2024-12-03] MEDS ORDERED: ROPIVACAINE 5 MG/ML 30 ML VIAL ONE (09:15)
[2024-12-03] MEDS ORDERED: HYDROmorphone (PF) 1 MG/ML ONE (09:15)
[2024-12-03] MEDS ORDERED: NEOSTIGMINE 1 MG/ML 10 ML VIAL ONE (09:15)
[2024-12-03] MEDS ORDERED: KETAMINE HCL IN 0.9 % NACL 50 MG/5 ML SYRINGE ONE (09:15)
[2024-12-03] MEDS ORDERED: GLYCOPYRROLATE 0.2 MG/ML 2 ML VIAL ONE (09:15)
[2024-12-03] MEDS ORDERED: SUCCINYLCHOLINE CHLORIDE 200 MG/10 ML VIAL IV ONE (09:15)
[2024-12-03] MEDS ORDERED: ROCURONIUM 10 MG/ML (5 ML VIAL) IV ONE (09:15)
[2024-12-03] MEDS ORDERED: MIDAZOLAM 2 MG/2 ML VIAL ONE (09:15)
[2024-12-03] MEDS ORDERED: LIDOCAINE 1% INJ 10MG/ML (20 ML MDV) ONE (09:15)
[2024-12-03] MEDS ORDERED: PROPOFOL 10 MG/ML 20 ML VIAL IV ONE (09:15)
[2024-12-03] MEDS ORDERED: fentaNYL (PF) 50 MCG/ML 2 ML AMP ONE (09:15)
[2024-12-03] MEDS ORDERED: ALBUTEROL HFA INHALER INHALATION ONE (09:15)
[2024-12-03] MEDS: ceFAZolin 3 GM in SODIUM CHLORIDE 0.9% 100 ML IVPB PRN (09:20)
[2024-12-03 11:45] VITALS: TEMP 97
[2024-12-03] MEDS: HYDROmorphone 0.5 MG/0.5 ML SYRINGE IVP PRN (11:53)
[2024-12-03] MEDS: IPRATROPIUM-ALBUTEROL 3 ML NEB INHALATION STA (11:53)
[2024-12-03] MEDS: ALBUTEROL NEBULIZED 2.5 MG/3 ML INHALATION STA (12:05)
[2024-12-03] MEDS: DEXAMETHASONE SOD PHOSPHATE 10 MG/ML 1 ML VIAL IVP STA (12:06)
[2024-12-03] MEDS: KETOROLAC 15 MG/ML 1 ML VIAL IVP STA (12:29)
--- NOTE | 2024-12-03 13:44 | P.OP ---
Date of Procedure: 12/03/24 Preoperative Diagnosis: Chronic Achilles tendon rupture left ankle Postoperative Diagnosis: Same Procedure(s) Performed: 1. Secondary repair of Achilles tendon left ankle 2. Flexor hallucis longus tendon transfer left ankle 3. Gastroc recession left leg Anesthesia: NOEMI Surgeon: Christopher Dillard Estimated Blood Loss (ml): 100 Pathology: none sent Condition: stable Disposition: PACU Description of Procedure: Prior to the patient being brought to the op room, anesthesia administered a nerve block on the left lower extremity. The patient was brought into the op room, where a timeout was taken to confirm correct patient identifiers, correct laterality of surgery, and correct procedure. With the patient still in the bed, anesthesia induced the patient and placed him under general anesthesia. Then the patient was rolled onto the operating table in the prone position. Ap propriate padding was beneath the head thoracic area and any bony prominences. Once anesthesia was satisfied with the position of the patient, a tourniquet was placed on the left thigh. Then the left leg was prepped and draped in usual manner. The left leg was exsanguinated the knee flexed and the tourniquet inflated to 250 mmHg. Attention was directed over the posterior aspect of the leg near the distal border of the gastroc muscle belly. A straight, midline is was made area. It was deepened down to the subcutaneous tissue careful to identify, avoid, and retracting the structures in any bleeding dissection was done bluntly through the subcutaneous layer down to the deep fascia. The fascia was isolated and incised and then the aponeurosis was bluntly dissected from the overlying deep fascia. The aponeurosis was mobilized and a transverse incision was made from medial to lateral through the entirety of the aponeurosis. Once completed the ankle was dorsiflexed and a 1 to 2 cm gap was created in the aponeurosis and ankle dorsiflexion increased. The wound was irrigated with antibiotic saline. Subcutaneous closure was done with 3-0 Monocryl. Skin closure was done with 4-0 Stratafix in a running subcuticular manner. Then attention was directed to the posterior aspect of the ankle and heel, at the Achilles insertion. A linear incision was made medial to the midline. It w as deepened down to the subcutaneous tissue careful to identify, avoid, and retract any neurovascular structures and cauterize any bleeding vessels. Blunt dissection is carried down to the level of the tendon. The subcutaneous tissue was reflected off the attachment of the tendon medially and laterally. Incisions were made medial lateral along the insertion of the Achilles to detach it from the calcaneus. Of note the tendon was 4-5 times normal thickness and that showed retraction to the more superior aspect of the calcaneus. The Achilles tendon was then retracted to allow for the flexor hallucis longus tendon transfer. Before that was completed a rongeur was used to remove all the soft tissue from the posterior aspect of the calcaneus. And then a bone bur was used to resect any unhealthy bone and expose bleeding medullary bone. Then blunt dissection was done through the deep fascia and the posterior ankle. This is done down to the flexor hallucis longus muscle belly. That was traced distally until the tendon was identified and followed into the medial compartment. Very carefully, the tendon was transected and delivered to the surgical field. A whipstitch was then placed over the tendon stump. Guidewire placement for the passage of the tendon was then done from the superior aspect of the calcaneus to the plantar aspect, just anterior to the Achilles insertion and just anterior to the calcaneal tuberosity upon exit. An appropriate size reamer was then placed over the wire and reamers through the entirety of the calcaneus from dorsal to plantar. After reaming the area was thoroughly irrigated with saline to remove any of the bony fragments. With the wire still in place the suture from the whipstitch on the flexor hallucis longus tendon was passed through the eyelet and then the wire was pulled through the plantar aspect of the foot bring the suture along with it. The sutures was then tensioned pulling the tendon into the bony canal the calcaneus. With the ankle in slight plantarflexion an 8 mm interference screw was then inserted and the drill hole and advanced until it fully locked the tendon in place. Range of motion of the ankle showed that the tendon was fully secured into the calcaneus. The suture from the plantar aspect of the foot there was then cut. Attention was redirected back to the Achilles tendon, where a scalpel was used to sharply excise the abnormal tissue in the thickened area of the tendon, until adequately debrided. A ring forceps was used to grasp the stump of the tendon and pull it distally to find out the true length and its attachment point under the calcaneus. This was marked on the posterior aspect of the heel. Drill holes for the 4.75 anchors were made proximal to this line in the posterior aspect of the calcaneus. Distal drill holes were then made just distal to this aligned on the medial and lateral sides of the Achilles insertion, for total of 4 holes drilled. All holes were then tapped. The proximal swivel lock anchors with suture, were inserted and first and advanced down to proper depth. Drill holes for fiber tack anchors were made between the 2 rows of drill holes and just outside the medial lateral margins. The fiber tack anchors were inserted and impacted down to proper depth. The suture of the proximal anchors was then passed through the Achilles tendon superior to where the fiber tack suture would pass. With distal tension on the Achilles, the suture for the fiber tacks was then passed from deep to superficial through the tendon. With the ankle held in neutral both sets of sutures were tied which brought it firmly against the posterior superior aspect of the calcaneus. 1 arm with suture from each proximal swivel lock anchor was then fed through another swivel lock anchor and positioned in the distal drill holes. Passing the suture in this way form the classic speed bridge pattern. The anchors were inserted with the suture and the anchors advanced fully tensioned the suture to compress the tendon against the back of the calcaneus. Once completed the fixation was tested and was extremely firm and well attached to the back of the heel. Any excess tendon was sharply removed. All wounds were thoroughly irrigated with antibiotic saline. Subcutaneous closure of the distal incision was done with 3-0 Monocryl and skin closure done with stainless fabio. Arthrex jumpstart and a bulky dry dressing applied to the leg. The tourniquet was released and capillary refill returned to all digits of the foot. The patient was placed in a well-padded, well molded plaster posterior mold/sugar-tong splint. The ankle was held in slight plantarflexion as the splint dried. The patient was rolled onto to the bed back into the supine position, where anesthesia was reversed and she was taken recovery with vital signs stable.
[2024-12-03] MEDS: LACTATED RINGERS 1,000 ML IV ONE (13:55)
[2024-12-03 14:30] VITALS: RESP 16
[2024-12-03 15:07] VITALS: BP 121/76; PULSE 85
--- NOTE | 2024-12-05 16:33 | P.ANPRN ---
Procedure Note - Anesthesia - Nerve Block Performed Left Popliteal Single Time Out Performed: Yes Date of Procedure: 12/03/24 Procedure Start Time: 08:14 Procedure Stop Time: 08:20 Location of Patient: PreOp Indication: Acute Post-Operative Pain, Requested by Surgeon Sedation Type: Sedate with meaningful contact maintained Preparation: Sterile Prep Position: Right Lateral Needle Types: Pajunk Needle Gauge: 21 Ultrasound used to visualize needle placement: Yes Ultrasound used to observe medication spread: Yes Blood Aspirated: No Pain Paresthesia on Injection Noted: No Resistance on Injection: Normal Image Stored and Saved: Yes Events: Uneventful and Well Tolerated (ropi 0.5% 20cc plus dexamethasone 4 mg)
--- NOTE | 2024-12-05 16:34 | P.ANPRN ---
Procedure Note - Anesthesia - Nerve Block Performed Left Adductor Canal Single Time Out Performed: Yes Date of Procedure: 12/03/24 Procedure Start Time: Procedure Stop Time: Location of Patient: PreOp Indication: Acute Post-Operative Pain, Requested by Surgeon Sedation Type: Sedate with meaningful contact maintained Preparation: Sterile Prep Position: Supine Needle Types: Pajunk Needle Gauge: 21 Ultrasound used to visualize needle placement: Yes Ultrasound used to observe medication spread: Yes Blood Aspirated: No Pain Paresthesia on Injection Noted: No Resistance on Injection: Normal Image Stored and Saved: Yes Events: Uneventful and Well Tolerated (Ropivacaine 0.5% 20 cc plus dexamethasone 4 mg)
== END 2024-12-03 15:31 | disposition home or self-care (01) ==
LOC: OR 07:14
PROVIDERS: ATTEND Podiatrist
DX: S96.912A Strain of unspecified muscle and tendon at ankle and foot level, left foot, initial encounter (principal); M76.62 Achilles tendinitis, left leg; K21.9 Gastro-esophageal reflux disease without esophagitis; F17.210 Nicotine dependence, cigarettes, uncomplicated; I10 Essential (primary) hypertension; G47.33 Obstructive sleep apnea (adult) (pediatric); E66.01 Morbid (severe) obesity due to excess calories; Z68.42 Body mass index [BMI] 45.0-49.9, adult; Z48.89 Encounter for other specified surgical aftercare; Z79.1 Long term (current) use of non-steroidal anti-inflammatories (NSAID); Z79.899 Other long term (current) drug therapy; X58.XXXA Exposure to other specified factors, initial encounter
CPT/HCPCS: 27654; 27687; 27691; 64447; 81025; 64445; 80048; 85025; C1713; J2250; J0330; J1100 ×2; J2710; J0690; J2405; J2003; J3010; J1171 ×2; J2795; J1885; J2704; J1596